=== PATIENT | male | born 1985 | race Caucasian/White ===

== ENCOUNTER 2023-01-18 20:02 | Emergency (ER) | payer OTHER, SELFPAY ==
[2023-01-18 20:13] VITALS: BP 144/86; PULSE 73; RESP 18; TEMP 36.4; O2SAT 98; BMI 24.7
--- NOTE | 2023-01-18 20:13 | ED.GENADULT ---
HPI - General Adult General Chief complaint: General Medical Stated complaint: sent from gabriella MOLINA Time Seen by Provider: 01/18/23 23:23 Source: patient Mode of arrival: ambulatory Limitations: no limitations History of Present Illness HPI narrative: 37-year-old male presents with lightheadedness and near syncopal symptoms. Symptoms started approximately 2 weeks ago. There frequently occurring. They last for about 30 seconds and then go away. Sometimes they are associated with position while other times it is quite random. Patient works outside throughout the day. Sometimes he hydrates more than others. Is not clearly associated with his hydration level. Patient denies any chest pain, palpitations, shortness of breath. Denies any lower extremity edema. Denies any history of PE or DVT. He does have a history of hypertension for which she takes medications. He is also supposed to start cholesterol lowering medications. Patient does smoke cigarettes, occasionally drinks alcohol but no drugs. Patient denies any vertiginous symptoms. Related Data Previous Rx's Medication Instructions Recorded cephalexin 500 mg capsule 500 mg PO Q8H #30 caps 01/19/23 Allergies Allergy/AdvReac Type Severity Reaction Status Date / Time prednisone Allergy Hives Verified 01/18/23 20:13 Review of Systems Review of Systems: CONSTITUTIONAL: Denies weight loss, fever and chills. HEENT: Denies changes in vision and hearing. RESPIRATORY: Denies SOB and cough. CV: Denies palpitations no CP. GI: Denies abdominal pain, nausea, vomiting and diarrhea. : Denies dysuria and urinary frequency. MSK: Denies myalgia and joint pain. SKIN: Denies rash and pruritus. NEUROLOGICAL: Denies headache and syncope. PSYCHIATRIC: Denies recent changes in mood. Denies anxiety and depression. All other ROS are negative unless in HPI [facility] Past Medical History [facility] Narrative: Hypertension, hypercholesterolemia Social History Social History Advance Directives: No Advance Directives Information Provided: Yes Physical Exam ED Vital Signs: Vital Signs - 24 hr 01/18/23 20:13 01/18/23 23:45 Temperature 97.6 F 98.7 F Pulse Rate 73 75 Respiratory Rate 18 16 Blood Pressure 144/86 H 129/85 Pulse Oximetry 98 94 Oxygen Delivery Method Room Air Room Air BMI result Body Mass Index 24.7 GEN: Well developed, no acute distress, alert, oriented HEENT: Normocephalic, atraumatic, normal external ears, nose appears normal, no oropharyngeal edema or exudates Eyes: Normal to appearance Neck: Supple, no lymphadenopathy Respiratory: Talks in complete sentences, no respiratory distress, clear to auscultation bilaterally Cardiovascular: Regular rate and rhythm, no murmurs rubs or gallops Abdomen: Soft, nontender, nondistended, no guarding, no rebound Back: No CVA tenderness Extremities: No clubbing cyanosis or edema , subungual hematoma on the right 2nd digit Neurologic: No focal neurologic deficits, cranial nerves 2-12 intact, strength is 5/5 bilaterally Skin: No rash Course Course Course Narrative: This is an RME: Additional HPI, ROS, PE not included below will be deferred to primary provider. This is a [id number]-male, hx of htn and hld, presenting to the emergency department with a complaint of neck pain, numbness and tingling in his bilateral hands and dizziness x 2 weeks. No recent changes in medications. No chest pain or shortness of breath. Plan: Labs, EKG Reevaluation(s) Reevaluation #1: the workup is complete. Laboratory analysis was unremarkable including cardiac enzymes. EKG was nonischemic in no evidence of cardiac dysrhythmia. I will however recommend cardiology follow-up. Aware he may require echocardiogram, stress test and Holter monitoring. Patient can return for any worsening or concerning symptoms. Regarding his subungual hematoma he tolerated the procedure well. Will start oral antibiotics return as needed. Time: 00:56 Procedures Nail Trephination Time out: Yes Location (finger): left and index Sterile prep: betadine Method of drainage: nail cautery Procedure successful: Yes Patient tolerated procedure: No Complications Medical Decision Making Medical Decision Making [facility] Narrative: patient presents with episodes of lightheadedness and near syncope. Exam is benign. His EKG shows no cardiac dysrhythmia or ischemia. Will check for anemia, electrolyte abnormality, renal dysfunction. Will check orthostatic vital signs. Differential Diagnosis Differential Diagnoses: The differential diagnosis associated with the presentation includes ( See above) Lightheadedness Admission/Observation Consideration of admission/observation: Escalation of care including admission/observation considered Lab Data [facility] Lab Attestation statement: I reviewed the patient's lab results. 01/18/23 20:56 01/18/23 20:56 Labs: Lab Results 01/18/23 01/18/23 01/18/23 Range/Units 20:56 20:56 20:56 WBC 10.4 (4.8-10.8) X10*3/uL RBC 4.96 (4.60-5.80) X10*6/uL Hgb 15.9 (14.0-18.0) g/dl Hct 45.1 (42.0-52.0) % MCV 90.9 (80.0-98.0) fL MCH 32.1 (27.0-33.0) pg MCHC 35.3 (31.0-36.0) g/dl RDW 12.7 (11.0-16.0) % Plt Count 277 (160-400) X10*3/uL MPV 8.6 L (9.4-12.4) fL Immature Gran % (Auto) 0.2 (0.0-0.4) % Neut % (Auto) 51.4 (45-73) % Lymph % (Auto) 35.6 (20-40) % [place] % (Auto) 7.5 (2-11) % Eos % (Auto) 4.3 H (0-4) % Baso % (Auto) 1.0 (0-2) % Lymph # (Auto) 3.7 (1.2-4.9) X10*3/uL [place] # (Auto) 0.8 (0.1-1.2) X10*3/uL Eos # (Auto) 0.5 H (0.0-0.4) X10*3/uL Baso # (Auto) 0.1 (0.0-0.2) X10*3/uL Abs Immat Gran (auto) 0.02 (0.00-0.03) X10*3/uL Absolute Neuts (auto) 5.3 (2.0-8.3) x10*3/uL Absolute Nucleated RBC 0.000 (0.0-0.012) X10*3/uL Nucleated RBC % (auto) 0.0 (0.0-0.2) /100WBC Sodium 139 (135-145) mmol/L Potassium 3.8 (3.3-5.1) mmol/L Chloride 103 (96-108) mmol/L Carbon Dioxide 26 (22-29) mmol/L Anion Gap 14 (12-20) BUN 12 (9-16) mg/dL Creatinine 1.08 (0.5-1.4) mg/dL Estim Creat Clear Calc 92.7 Estimated GFR > 60 Random Glucose 101 (60-115) mg/dL Calcium 10.1 (8.4-10.2) mg/dL Magnesium 2.2 (1.6-2.6) mg/dL Total Bilirubin 0.6 (0.0-1.0) mg/dL Direct Bilirubin 0.2 (0.0-0.5) mg/dL AST 16 (5-37) U/L ALT 14 (0-40) U/L Alkaline Phosphatase 68 (39-117) U/L Troponin I High Sens < 2.7 (<3.5-35.0) ng/L Total Protein 7.3 (6.5-8.0) g/dL Albumin 4.7 (3.5-5.0) g/dL no indication of anemia, cardiac ischemia on laboratory analysis is the cause of his symptoms. Independent Interpretation I performed an independent interpretation of an: EKG ( normal sinus rhythm heart rate 72, right axis deviation, no acute ST elevations or depressions.) Independent Historian Clinical information obtained from an independent historian. History obtained from or confirmed by: Spouse Prescription Management I considered prescription management with: Pain Medication Chronic Conditions Patient?s care impacted by: Hypertension Discharge Plan Discharge Clinical Impression: Lightheadedness, Subungual hematoma of finger Patient Disposition: Home, Self-Care Instructions: Lightheadedness (ED) Prescriptions: New cephalexin 500 mg capsule 500 mg PO Q8H Qty: 30 0RF Referrals: Wade Glaser MD [Physician] - 1 week
--- NOTE | 2023-01-18 20:21 | ECG_ITS ---
Test Reason : chest pain Blood Pressure : / mmHG Vent. Rate : 072 BPM Atrial Rate : 072 BPM P-R Int : 160 ms QRS Dur : 098 ms QT Int : 378 ms P-R-T Axes : 058 093 046 degrees QTc Int : 413 ms Normal sinus rhythm Rightward axis Borderline ECG No previous ECGs available Referred By: Lilliana Antonio Electronically Signed By:SARAHY BURNETTE
[2023-01-18 21:02] LABS: MANUAL DIFF FLAG NO
[2023-01-18 21:03] LABS: Basophils Absolute Auto 0.1 X10*3/uL (0.0-0.2); Eosinophils Absolute Auto 0.5 X10*3/uL (0.0-0.4); Eosinophils Percent Auto 4.3 % (0-4); Hematocrit 45.1 % (42.0-52.0); Hemoglobin 15.9 g/dl (14.0-18.0); Imm Gran Abs Auto 0.02 X10*3/uL (0.00-0.03); Imm Gran Pct Auto 0.2 % (0.0-0.4); Lymphocytes Absolute Auto 3.7 X10*3/uL (1.2-4.9); Lymphocytes Percent Auto 35.6 % (20-40); Mean Corpuscular HGB Conc 35.3 g/dl (31.0-36.0); Mean Corpuscular Hemoglobin 32.1 pg (27.0-33.0); Mean Corpuscular Volume 90.9 fL (80.0-98.0); Mean Platelet Volume 8.6 fL (9.4-12.4); Monocytes Absolute Auto 0.8 X10*3/uL (0.1-1.2); Monocytes Percent Auto 7.5 % (2-11); Neutrophils Absolute Auto 5.3 x10*3/uL (2.0-8.3); Neutrophils Percent Auto 51.4 % (45-73); Platelet Count 277 X10*3/uL (160-400); Red Blood Count 4.96 X10*6/uL (4.60-5.80); Red Cell Distribution Width 12.7 % (11.0-16.0); White Blood Count 10.4 X10*3/uL (4.8-10.8)
[2023-01-18 21:33] LABS: Alanine Aminotransferase 14 U/L (0-40); Albumin Level 4.7 g/dL (3.5-5.0); Alkaline Phosphatase 68 U/L (39-117); Anion Gap 14 (12-20); Aspartate Amino Transferase 16 U/L (5-37); Bilirubin Direct 0.2 mg/dL (0.0-0.5); Bilirubin Total 0.6 mg/dL (0.0-1.0); Blood Urea Nitrogen 12 mg/dL (9-16); Calcium 10.1 mg/dL (8.4-10.2); Carbon Dioxide 26 mmol/L (22-29); Chloride 103 mmol/L (96-108); Creatinine Clr Calc Pharmacy 92.7; Estimated Glomerular Filt Rate > 60; Glucose Random 101 mg/dL (60-115); Magnesium 2.2 mg/dL (1.6-2.6); Potassium 3.8 mmol/L (3.3-5.1); Sodium 139 mmol/L (135-145); Total Protein 7.3 g/dL (6.5-8.0)
[2023-01-18 21:44] LABS: Troponin-I High Sensitivity < 2.7 ng/L (<3.5-35.0)
[2023-01-18 23:45] VITALS: BP 129/85; PULSE 75; RESP 16; TEMP 37.1; O2SAT 94
== END 2023-01-19 01:13 | disposition home or self-care (01) ==
PROVIDERS: Physician Assistant Medical; Emergency Provider Emergency Medicine; PCP Family Medicine
DX: S60.10XA Contusion of unspecified finger with damage to nail, initial encounter (principal); R55 Syncope and collapse; M79.642 Pain in left hand; M79.641 Pain in right hand; R07.89 Other chest pain; X58.XXXA Exposure to other specified factors, initial encounter; Y93.9 Activity, unspecified; Y92.9 Unspecified place or not applicable; Y99.9 Unspecified external cause status; Z79.899 Other long term (current) drug therapy
CPT/HCPCS: 11740; 11750; 36415; 80048; 80076; 83735; 84484; 85025; 93005; 99283; 99284